=== PATIENT | female | born 1985 | race Hispanic/Latino ===

== ENCOUNTER 2018-07-01 03:29 | Inpatient (IN) | payer OTHER ==
[2018-07-01 04:25] VITALS: BMI 28.0
[2018-07-01 04:49] LABS: BASO # 0.1 K/uL (0.0-0.2); BASO % 0.5 % (0.0-2.0); EOS # 0.1 K/uL (0.0-0.7); EOS % 1.1 % (0.0-4.0); HEMOGLOBIN 9.3 g/dL (11.0-16.0); LYMPH # 3.2 K/uL (1.0-4.3); LYMPH % 30.9 % (20.0-40.0); MEAN CELL VOLUME 77.8 fL (81.0-99.0); MEAN CORPUSCULAR HEMOGLOBIN 25.9 pg (27.0-31.0); MEAN CORPUSCULAR HGB CONC 33.3 g/dL (33.0-37.0); MEAN PLATELET VOLUME 8.9 fL (7.2-11.7); MONO # 0.6 K/uL (0.0-0.8); MONO % 5.7 % (0.0-10.0); NEUT # 6.4 K/uL (1.8-7.0); NEUT % 61.8 % (50.0-75.0); RBC 3.57 Mil/uL (3.80-5.20); RED CELL DISTRIBUTION WIDTH 14.3 % (11.5-14.5); WHITE BLOOD COUNT 10.4 K/uL (4.8-10.8)
[2018-07-01 05:01] LABS: ALT/SGPT 23 U/L (9-52); AST/SGOT 14 U/L (14-36); BLOOD UREA NITROGEN 9 mg/dL (7-17); CALCIUM 8.5 mg/dl (8.6-10.4); GFR NON-AFRICAN AMERICAN > 60
[2018-07-01 05:41] LABS: URINE BILIRUBIN NEGATIVE (NEGATIVE); URINE BLOOD NEGATIVE (NEGATIVE); URINE CLARITY SLIGHT-CLOUDY (Clear); URINE COLOR YELLOW (YELLOW); URINE GLUCOSE (UA) NEGATIVE (Normal); URINE PROTEIN 30 mg/dL (NEGATIVE)
[2018-07-01 05:42] LABS: SQUAMOUS EPITHIAL 8 /hpf (0-5); URINE BACTERIA MOD (<OCC); URINE LEUKOCYTE ESTERASE TRACE Leu/uL (Negative); URINE UROBILINOGEN 0.2 mg/dL (0.2-1.0)
[2018-07-01] MEDS ORDERED: cefOXitin IV 2 gm in Dextrose 2 GM/50 ML BAG IVPB ONE (06:36)
[2018-07-01] MEDS ORDERED: Sodium Citrate/Citric Acid 15 ml Sol PO ONE (06:36)
[2018-07-01] MEDS ORDERED: cefOXitin IV 2 gm in Saline 2 GM/50 ML BAG IVPB ONE (07:03)
[2018-07-01] MEDS ORDERED: Oxytocin 10 Units/ml Inj ONE (07:05)
[2018-07-01] MEDS ORDERED: Oxytocin 20 units in LR 2,000 ML IV ONE (07:07)
--- NOTE | 2018-07-01 07:08 | OBADHP ---
Datetime: 07/01/2018 06:46 IP Adm Impression Other: Previous C/S x 2, c/o abdominal pain Admit Comment, IP Provider: This is a private patient of Dr. James 33 y.o. , LMP unsure NOÉ 07/10/18, EGA 38w6d, previous C/S x 2 c/o Ctx on and off x 2 days , pain scale 7/10. (+) AFM; denies LOF, VB. Prenatl acare: Dr. James. reportedly no issues P Ob: C/S x 2, 2012, male, 8lb 15 oz, [facility]. 2014, female, 6+lb, [facility] Spont ab x 2, 2009, "little more than 12 weeks", with D_C. 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 No h/o STIs, abnormal Pap, myomata, ovarian cysts PMH: h/o asthma, last attack 2014 PSH: C/S x 2, D_C x 1, 2015, laparoscopic appendectomy NKDA Meds: PNV Soc Hx: denies tobacco, illicit drug or EtOh use. Fam Hx: Mother and Father alive, ages unknown. no med issues. No known fam h/o cancer P.E.: as above. WD in NAD; (+) mild discomfort. Awake, alert, oriented to time, person and place. Assessment: 33 y.o. P2022, 38w 6d previous C/S x 2, for elective repeat C/S. Category 1 traicng. I nfant is for adoption. Dr. James to obtain consents. Patient is clincially stable. Plan: 1) Admit 2) NPO 3) IVFs 4) Admission labs 5) Continouos EFM 6) Abdominal prep and shave 7) Resendez 8) Mefoxin, professional nursing assistant to O.R. 9) Notify peds 10) Notify anesthesia 11) Patient professional nursing assistant to O.R. - as per and D/W Dr. James Pelvic Type - PN: Adequate Extremities - PN: Abnormal Abdomen - PN: Normal Back - PN: Normal Breast - PN: Not Done Lungs - PN: Normal Heart - PN: Normal Thyroid - PN: Not Done Neurologic - PN: Normal HEENT - PN: Normal General - PN: Normal FHR - Baseline A Provider: 115 Contraction Comments Provider: none detected Comments, ACOG Physical Exam: Skin: multiple tattooes Abdomen: Gravid. Soft. Non tender. All other systems reviewed and are negative Gestation - Est Wks by US: 39w 6d IP Hx Assessment: The History has been Reviewed and is Current IP Chief Complaint: Uterine contractions NICHD Variability Prov Fetus A: Moderate 6-25bpm NICHD Accel Fetus A IP Provider: [id number] FHR Category Provider Fetus A: Category I NICHD Decel Fetus A IP Provider: None Dilatation, Provider: 2 Effacement, Provider: long Station, Provider: 0 Genitourinary Exam: Normal DTRs - PN: Not Done EGA AdmitDate IP: 38.5 IP Adm Impression: Term, intrauterine ; No Active Labor; Intact Membranes IP Admit Plan: Admit to unit; Initiate Section protocol
[2018-07-01] MEDS ORDERED: Lactated Ringer's 1,000 ML IV ONE (07:13)
[2018-07-01] MEDS ORDERED: Lactated Ringer's 1,000 ML IV SCH (07:15)
[2018-07-01] MEDS ORDERED: Phenylephrine 10 mg/ml Inj ONE (07:36)
[2018-07-01] MEDS ORDERED: Morphine 1 mg/ml preservative-free Inj(Duramorph) ONE (07:36)
[2018-07-01] MEDS ORDERED: Lidocaine Hydrochloride 5 ML INJ ONE (07:44)
[2018-07-01] MEDS ORDERED: Propofol 10 mg/ml Inj (20 ML) ONE ×2 (07:44→08:06)
[2018-07-01] MEDS ORDERED: Midazolam 2 MG/2 ML VIAL ONE (08:06)
[2018-07-01] MEDS ORDERED: Oxycodone/Acetaminophen 5/325 mg Tab PO PRN (09:14)
[2018-07-01] MEDS ORDERED: Tdap Vaccine 0.5 ml Vial (10-64 yrs) IM ONE (09:15)
--- NOTE | 2018-07-01 09:36 | OBDS ---
DELIVERY PERSONNEL Delivery Doctor: Migel James MD Scrub Nurse: Loren Mcgrath [employer] System Operator: Timbo Dominique RN Anesthesiologist: Dr. Valdez MATERNAL INFORMATION Delivery Anesthesia: Spinal Medications in Delivery: see anesthesia record Estimated Blood Loss (ml): 800 Placenta Cultured: No Maternal Complications: None Other Maternal Complications: previous c/s times 2 for possible adoption Provider Comments: dr xochilt buchanan baby deliverd in [facility] 06/07 no com LABOR SUMMARY EDC: 07/10/2018 00:00 No. Babies in Womb: 1 Attempted: No Labor Anesthesia: None LABOR INFORMATION Reason for Induction: Not Applicable Oxytocin: N/A Group B Beta Strep: Negative Antibiotics # of Doses: 0 Steroids Given: None Reason Steroids Not Administered: Not Applicable MEMBRANES Membranes Rupture Method: Artificial Rupture of Membranes: 07/01/2018 08:05 Length of Rupture (hrs): 0.02 Amniotic Fluid Color: Clear Amniotic Fluid Amount: Moderate Amniotic Fluid Odor: None STAGES OF LABOR Stage 3 hrs: 0 Stage 3 min: 1 CSECTION DELIVERY Primary Indication: Repeat Elective CSection Urgency: Elective CSection Incidence: Repeat Labor: N/A Elective: Elective CSection Incision: Lower Uterine Transverse BABY A INFORMATION Delivery Date/Time: 07/01/2018 08:06 Method of Delivery: Born in Route : No : N/A Forceps: N/A Vacuum Extraction: N/A Shoulder Dystocia : No SHOULDER DYSTOCIA BABY A Infant Delivery Date/Time: 07/01/2018 08:06 PRESENTATION/POSITION BABY A Presentation: Cephalic Cephalic Presentation: Vertex Vertex Position: Left Occipital Anterior Breech Presentation: N/A PLACENTA INFORMATION BABY A Placenta Delivery Time : 07/01/2018 08:07 Placenta Method of Delivery: Manual Removal Placenta Status: Delivered SCORES BABY A Heart Rate 1 min: >100 bpm Resp Effort 1 min: Good Cry Reflex Irritability 1 min: Cough or Sneeze or Pulls Away Muscle Tone 1 min: Active Motion Color 1 min: Body [place], Extremities Blue Resuscitation Effort 1 min: Tactile Stimulation SCORE 1 MIN: 9 Heart Rate 5 min: >100 bpm Resp Effort 5 min: Good Cry Reflex Irritability 5 min: Cough or Sneeze or Pulls Away Muscle Tone 5 min: Active Motion Color 5 min: Body [place], Extremities Blue Resuscitation Effort 5 min: N/A SCORE 5 MIN: 9 INFORMATION BABY A Gestational Age at Delivery: 38.5 Gestational Status: Term Infant Outcome : Liveborn Condition : Stable Sex: Male IDENTIFICATION/MEDS BABY A ID Band Number: [id number] Sensor Number: [id number] WEIGHT/LENGTH BABY A Infant Birthweight (gms): 3150 Infant Weight (lb): 6 Infant Weight (oz): 15 Infant Length Inches: 19.00 Infant Length cms: 48.3 CORD INFORMATION BABY A No. Cord Vessels: 3 Nuchal Cord : N/A Suction: Mouth; Nose
[2018-07-01] MEDS ORDERED: HYDROmorphone 0.5 mg/0.5 ml ISec IVP ONE (10:45)
[2018-07-01] MEDS ORDERED: HYDROmorphone 0.5 mg/0.5 ml ISec IVP PRN (10:53)
[2018-07-01] MEDS: Simethicone 80 mg Chewtab PO SCH ×2 (12:01→19:48)
[2018-07-02] MEDS: Simethicone 80 mg Chewtab PO SCH ×5 (00:06→23:56)
--- NOTE | 2018-07-02 06:35 | OBPPN ---
Datetime: 07/02/2018 06:33 PP Pain Prov: Within normal limits PP Nausea Prov: Denies PP Flatus Prov: No PP Comments Phys Exam Prov: dressing clean and dry ext no edema,no calf ten PP Impression Prov: Normal progression PP Plan Prov: Continue present management PP Progress Note Prov: pt was seen at bed side, daya undr control,no n/v, tolerating liquid deit,min lochia, flatus _ pod#1 cbc reg deit dc summers advance dei encourage a,bulation cont post op juanito Vital Signs Provider PP: Reviewed; Within Normal Limits
[2018-07-02 07:25] LABS: HEMOGLOBIN 8.6 g/dL (11.0-16.0); MEAN CELL VOLUME 77.6 fL (81.0-99.0); MEAN CORPUSCULAR HEMOGLOBIN 27.4 pg (27.0-31.0); MEAN CORPUSCULAR HGB CONC 35.3 g/dL (33.0-37.0); MEAN PLATELET VOLUME 8.4 fL (7.2-11.7); RBC 3.14 Mil/uL (3.80-5.20); RED CELL DISTRIBUTION WIDTH 14.1 % (11.5-14.5); WHITE BLOOD COUNT 9.5 K/uL (4.8-10.8)
[2018-07-02] MEDS: Oxycodone/Acetaminophen 5/325 mg Tab PO PRN ×2 (09:57→14:04)
[2018-07-02] MEDS: Prenatal Multivit/Folic Acid/Iron Tab PO SCH (10:07)
[2018-07-02] MEDS ORDERED: oxyCODONE 5 mg Immediate Release Tab PO ONE (16:45)
[2018-07-02] MEDS ORDERED: oxyCODONE 5 mg Immediate Release Tab PO PRN (19:13)
[2018-07-03] MEDS ORDERED: oxyCODONE 5 mg Immediate Release Tab PO SCH (06:00)
--- NOTE | 2018-07-03 08:13 | OBPPN ---
Datetime: 07/03/2018 07:57 PP Pain Prov: Within normal limits PP Nausea Prov: Denies PP Flatus Prov: Yes PP BM Prov: No PP Heart Prov: Normal PP Lungs Prov: Normal PP Abdomen/Uterus Prov: Normal PP Lochia Prov: Normal PP Extremities Prov: Normal PP Comments Phys Exam Prov: Incision site intact with dressing clean,dry and intact. No evidence of bleeding or discharge from incision site. No surrounding erythema or swelling around incision site. Fundus at the level of umbilicus. Bowel sounds x 4 present. PP Impression Prov: Normal progression PP Plan Prov: Continue present management PP Progress Note Prov: Patient seen and examined at bedside. She states she continues to have pain. She has been passing flatus, however has not had a bowel movement yet. She denies nausea, vomiting, f ever, chills, chest pain, shortness of breath, leg swelling or leg pain. Currently is breast feeding and bottle feeding child. Assessment: 33 year old POD2 s/p repeat C section on 07/01/18, currently tolerating diet without nausea or vomiting, passing flatus. Plan: Encourage water intake, ambulation Pain control IP PP Procedures: None Vital Signs Provider PP: Reviewed; Within Normal Limits
[2018-07-03] MEDS: Simethicone 80 mg Chewtab PO SCH ×4 (09:28→22:01)
[2018-07-03] MEDS: Prenatal Multivit/Folic Acid/Iron Tab PO SCH (09:28)
--- NOTE | 2018-07-03 12:49 | OBPPN ---
Datetime: 07/03/2018 12:48 PP Pain Prov: Within normal limits Datetime: 07/03/2018 12:39 PP Nausea Prov: Denies PP Flatus Prov: Yes PP BM Prov: No PP Abdomen/Uterus Prov: Normal PP Lochia Prov: Normal PP Vulva/Perineum Prov: Normal PP C/S Incision Prov: Normal PP Impression Prov: Normal progression PP Plan Prov: Continue present management PP Progress Note Prov: patient seen and evaluated due to complaints of abdominal pain she reports right sided lower abdominal pain focused around incision site on exam incision is well healing no erythema or discharge noted no rebound no guarding patient reassured continue pain medication will obtain abdominal US to further evaluate Dr. James contacted and agrees with imaging Vital Signs Provider PP: Reviewed
--- NOTE | 2018-07-03 14:37 | US ---
Date of service: 07/03/2018 PROCEDURE: Limited abdominal ultrasound HISTORY: abdominal pain around incision COMPARISON: None TECHNIQUE: Targeted high-resolution ultrasound of the abdominal wall was performed at the site of incision. FINDINGS: There is no evidence of drainable fluid collection at the site of incision. IMPRESSION: No sonographic abnormality at the site of abdominal wall incision.
[2018-07-03] MEDS ORDERED: oxyCODONE 5 mg Immediate Release Tab PO PRN (15:15)
[2018-07-03 16:06] VITALS: O2SAT 99
[2018-07-03 19:52] LABS: BASO % 0.3 % (0.0-2.0); EOS # 0.2 K/uL (0.0-0.7); EOS % 2.5 % (0.0-4.0); HEMOGLOBIN 8.5 g/dL (11.0-16.0); LYMPH # 2.8 K/uL (1.0-4.3); LYMPH % 29.6 % (20.0-40.0); MEAN CELL VOLUME 79.4 fL (81.0-99.0); MEAN CORPUSCULAR HEMOGLOBIN 26.8 pg (27.0-31.0); MEAN CORPUSCULAR HGB CONC 33.8 g/dL (33.0-37.0); MEAN PLATELET VOLUME 8.5 fL (7.2-11.7); MONO # 0.4 K/uL (0.0-0.8); MONO % 4.4 % (0.0-10.0); NEUT % 63.2 % (50.0-75.0); NRBC % 0.1 % (0.0-2.0); RBC 3.15 Mil/uL (3.80-5.20); RED CELL DISTRIBUTION WIDTH 14.2 % (11.5-14.5); WHITE BLOOD COUNT 9.5 K/uL (4.8-10.8)
[2018-07-03] MEDS: oxyCODONE 5 mg Immediate Release Tab PO PRN (20:04)
[2018-07-03 20:22] LABS: ALB/GLOB RATIO 0.9 (1.0-2.1); ALBUMIN 2.7 g/dL (3.5-5.0); ALT/SGPT 12 U/L (9-52); AST/SGOT 16 U/L (14-36); BLOOD UREA NITROGEN 6 mg/dL (7-17); CALCIUM 8.6 mg/dl (8.6-10.4); GFR NON-AFRICAN AMERICAN > 60
[2018-07-04] MEDS: oxyCODONE 5 mg Immediate Release Tab PO PRN ×3 (07:42→15:11)
[2018-07-04 08:40] VITALS: BP 122/78; PULSE 72; TEMP 98.4
--- NOTE | 2018-07-04 09:26 | OBPPN ---
Datetime: 07/04/2018 09:21 PP Pain Prov: Within normal limits PP Nausea Prov: Denies PP Flatus Prov: Yes PP BM Prov: No PP Breasts Prov: Normal PP Heart Prov: Normal PP Lungs Prov: Normal PP Abdomen/Uterus Prov: Normal PP Lochia Prov: Normal PP Vulva/Perineum Prov: Normal PP CVA Tenderness Prov: Normal PP Extremities Prov: Normal PP C/S Incision Prov: Normal PP Progress Prov: Normal PP Impression Prov: Normal progression PP Plan Prov: Continue present management PP Progress Note Prov: pt seen adn examied and reprots pain rlq controlld with medicaion. pt ambuiat n,b odiign, passing flatus, tolerated regular diet. pt denies nay fever, chills, nause, vomiting cp, sob VSS PE GEN NAD AAO x 3 RESP: CTAB: CVS:RRR< +S1/S2 ABDS: soft, NT/ND, +BS, no gurding ,no rebound tendenress ,no rigidity, no uterine tenderss Inciscion C/?DI healign well VE: minimal lohcia, non foul smelling EXT; no calf tenderness, negative leslee's sign A/P s/p RLTCS POD #3, requesting discharge -dc home -f/u PMD `1 week -percautin given plan as per pmd Dr James Vital Signs Provider PP: Reviewed; Within Normal Limits
[2018-07-04] MEDS: Simethicone 80 mg Chewtab PO SCH (09:48)
[2018-07-04] MEDS: Prenatal Multivit/Folic Acid/Iron Tab PO SCH (09:48)
[2018-07-04 22:02] VITALS: RESP 20
--- NOTE | 2018-07-22 17:59 | OBDCSUM ---
Datetime: 07/04/2018 14:29 Discharge Diagnosis, Provider: Term Delivered
--- NOTE | 2018-07-29 11:48 | OP ---
PROCEDURE DATE: 07/01/2018 PREOPERATIVE DIAGNOSIS: A 33-year-old 3, para 2 at 38 plus weeks for repeat section, abdominal pain. POSTOPERATIVE DIAGNOSIS: A 33-year-old 3, para 2 at 38+ weeks for repeat section, abdominal pain. PROCEDURE: . SURGEON: Migel James MD LAYOUT ARTIST: Lester Walden MD TYPE OF ANESTHESIA: Spinal anesthesia. ESTIMATED BLOOD LOSS: 800 mL COMPLICATIONS: None. DESCRIPTION OF PROCEDURE: After informed consent was obtained, the patient was brought to the operating room, placed on the table where spinal anesthesia was given. Once the anesthesia was given, the patient was prepped and draped in the normal sterile fashion. At the site of the previous skin incision, an incision was made with a knife; the subcutaneous cut with a Bovie. The fascia was excised on both sides using curved Panchal scissors. The fascia was from the site of the umbilicus and then at the site of the pubic bone. Rectus muscle was . The peritoneum was lifted up with 2 Allis and was cut with the Metzenbaum. Bladder blade was placed. Bladder flap was created. The lower uterine incision was made with a knife. It was extended using Bovie and curved Panchal scissors. Baby was delivered in SYDNIE position. Cord was clamped and cut. The baby was handed to the awaiting storeroom attendant. After that, uterus was cleaned of clots and all debris. The uterine incision was closed with #1 Vicryl in running interlocking fashion. Second layer was closed with the same stitch. Cul-de-sac was cleared of all the clots and debris. Then the uterus was returned back to the abdominal cavity. After that, gutters were cleared of all the clots and debris. The peritoneum was closed using 2-0 Vicryl in running interlocking fashion. The muscle was closed using 2-0 Vicryl in running interlocking fashion. The fascia was closed using #* Vicryl in running interlocking fashion. Subcutaneous tissue was closed with Vicryl in interrupted fashion. Skin was closed using 4-0 Monocryl straight needle. The patient tolerated the procedure well. Lap, sponge, and instrument count were correct x2. Migel James MD [facility] # [id number]
== END 2018-07-04 18:01 | disposition home or self-care (01) | DRG 540 ==
LOC: C.EROB 03:29 → C.4D 04:45 → C.4M 11:48
PROVIDERS: ADMIT Obstetrics & Gynecology; ATTEND Obstetrics & Gynecology
PROC: 10D00Z1 Extraction of Products of Conception, Low, Open Approach (ICD-10-PCS; principal; 2018-07-01)
DX: O34.211 Maternal care for low transverse scar from previous cesarean delivery (principal); J45.909 Unspecified asthma, uncomplicated; O99.52 Diseases of the respiratory system complicating childbirth; O34.219 Maternal care for unspecified type scar from previous cesarean delivery; Z37.0 Single live birth; Z3A.38 38 weeks gestation of pregnancy